=== PATIENT | female | born 1975 | race Caucasian/White ===

== ENCOUNTER → 2023-12-20 | Outpatient (CLI) | payer BC ==
[~2023-12-20] MED LIST: AMOXICILLIN875 MG PO; DIFLUCAN100 M1 PO
== END ==
LOC: LAB 08:33
DX: N39.0 Urinary tract infection, site not specified (principal)

== ENCOUNTER → 2024-07-18 | Outpatient (CLI) | payer BC | LOC: MAMMO 14:25 | DX: Z12.31 Encounter for screening mammogram for malignant neoplasm of breast (principal) ==